=== PATIENT | female | born 1990 | race Caucasian/White ===

== ENCOUNTER 2017-07-25 19:14 | Inpatient (IN) | payer OTHER ==
[~2017-07-25] VITALS: Ht 170.2 cm; Wt 104.3 kg
[~2017-07-25 19:14] MED LIST: BACTRIM DS TAB1 EAC1 PO; BACTRIM DS TAB1 EACH PO; CIPRO250 MG PO; DEPO-PROVE150 MG/11 IM; DEPO-PROVER400 MG/ML IM; DILAUDID 2 MG TA2 MG PO; ERYTHROMYCIN250 MG PO; HUMALOG100 UNIT/2 SUBQ; IRON325 PO; LANTUS100 UNIT/M SUBQ; LEVAQUIN 250 M250 MG PO; MORPHINE SULFAT15 M3 PO; NEURONTIN600 MG PO; ONDANSETRON HCL4 M2 PO; PERCOCET PO; PHENAZOPYRIDIN200 M2 PO; PHENERGAN 25 MG25 M1 PO; REGLAN 10 MG TA10 MG PO; TRAMADOL 50 MG50 MG PO; TRAZODONE 150150 M1 PO; ULTRAM 50MG TAB50 MG PO; VALIUM5 MG PO; VANCOMYCIN1 GM/250 M IV; XANAX 0.5 MG0.5 MG PO; ZOFRAN ODT4 MG DISSOLVE; ZOFRAN ODT4 MG PO; ZOFRAN4 MG PO; [UNRECOGNIZED DRUG - SUPPLY] MC
[2017-07-25 19:19] VITALS: BP 159/89
[2017-07-25 20:33] LABS: ABSOLUTE EOSINOPHILS 0.1 thou/uL (0.0-0.7); ABSOLUTE LYMPHOCYTES 2.1 thou/uL (0.8-5.3); ABSOLUTE MONOCYTES 0.4 thou/uL (0.0-1.2); ABSOLUTE NEUTROPHILS 3.8 thou/uL (1.6-8.1); BASOPHILS 0.4 %; EOSINOPHILS 1.9 %; HEMATOCRIT 35.3 % (37.0-47.0); HEMOGLOBIN 10.8 gm/dL (12.0-15.0); LYMPHOCYTES 32.9 %; MCH 23.3 pg (26.0-34.0); MCHC 30.7 g/dL (28.0-37.0); MCV 76.1 fL (80.0-100.0); MONOCYTES 5.8 %; MPV 8.1 fl. (7.2-11.1); NUCLEATED RBCS 0 /100WBC; PLATELET COUNT* 202 thou/uL (150-400); RBC 4.64 mil/uL (4.20-5.00); RDW-CV 17.9 % (10.5-14.5); WBC 6.4 thou/uL (4.0-11.0)
[2017-07-25 20:44] LABS: CALCIUM 8.3 mg/dL (8.5-10.1); CREATININE 0.9 mg/dL (0.6-1.3)
[2017-07-25 20:45] LABS: ALBUMIN 3.5 g/dL (3.4-5.0); TOTAL BILIRUBIN 0.2 mg/dL (<0.1-1.0); TOTAL PROTEIN 7.4 g/dL (6.4-8.2)
[2017-07-25 22:25] VITALS: BP 131/80
[2017-07-25 22:45] VITALS: BP 118/81
[2017-07-25 22:56] LABS: URINE BILIRUBIN NEGATIVE (Negative); URINE BLOOD TRACE (Negative); URINE CLARITY CLEAR; URINE COLOR STRAW; URINE GLUCOSE-RANDOM 3+ (Negative); URINE KETONES NEGATIVE (Negative); URINE LEUKOCYTES-REFLEX NEGATIVE (Negative); URINE NITRITE-REFLEX NEGATIVE (Negative); URINE PROTEIN NEGATIVE (Negative); URINE SPECIFIC GRAVITY <= 1.005 (1.005-1.030); URINE UROBILINOGEN 0.2 E.U./dl (0.2-1.0)
[2017-07-25 23:07] LABS: AMP/METHAMP Negative (Negative); BARBITURATES Negative (Negative); BENZODIAZEPINES Negative (Negative); COCAINE Negative (Negative); METHADONE Negative (Negative); OPIATES Negative (Negative); PCP Negative (Negative); THC Negative (Negative)
[2017-07-26] VITALS (8 sets, daily range): BP systolic 118–147; BP diastolic 71–93
--- NOTE | 2017-07-26 00:45 | NUR ---
PT ADMITTED TO ICU BED 5 AT 2240, AMBULATED FROM CART TO BED INDEPENDENTLY WITH STEADY GAIT. SEE ADMISSION ASSESSMENT. VSS, SINUS TACHYCARDIA ON MONITOR. IVF AND INSULIN GTT INFUSING PER PROTOCOL. PT REFUSED SCD'S, PT EDUCATED ON RATIONALE BUT DECLINED SCD'S. CELLULITIS TO RIGHT 5TH FINGER OF HAND/WRIST AREA, ERRYTHEMA NOTED TO EXTEND UP FOREARM. PHOTO TAKEN AND PLACED IN PTS CHART. PAIN AND NAUSEA TREATED WITH PRN MEDS ORDERED. UP TO BSC WITH STAND-BY ASSIST ONLY. CALL LIGHT WITHIN REACH.
[2017-07-26 03:22] LABS: HEMATOCRIT 33.7 % (37.0-47.0); HEMOGLOBIN 11.1 gm/dL (12.0-15.0); MCH 24.4 pg (26.0-34.0); MPV 7.9 fl. (7.2-11.1); RBC 4.56 mil/uL (4.20-5.00); RDW-CV 17.6 % (10.5-14.5); WBC 7.7 thou/uL (4.0-11.0)
[2017-07-26 03:51] LABS: ALBUMIN 3.6 g/dL (3.4-5.0); CALCIUM 8.3 mg/dL (8.5-10.1); CREATININE 0.6 mg/dL (0.6-1.3); POTASSIUM 3.2 mmol/L (3.5-5.1); TOTAL BILIRUBIN 0.1 mg/dL (<0.1-1.0); TOTAL PROTEIN 7.4 g/dL (6.4-8.2)
--- NOTE | 2017-07-26 08:30 | NUR ---
INSULIN GTT TURNED OFF. MORNING DOSE OF INSULIN GIVEN,PT ENCOURAGED TO EAT BREAKFAST
--- NOTE | 2017-07-26 14:36 | NUR ---
SPOKE WITH PT. SHE AND HER FIANCE MANUEL ARE CURRENTLY LIVING WITH MANUEL'S SISTER. SHE SAID SHE HAD MEDICAID BUT 'I GUESS I DIDN'T GET SOMETHING IN THE MAIL THAT I NEEDED AND NOW IT HAS LAPSED.' PT HAS REAPPLIED FOR MEDICAID BUT IT IS NOT CURRENT. PT SAID SHE GOES TO [facility] FOR HER PCP, THEY HELP HER WITH HER MEDICATIONS WHEN SHE NEEDS IT ALSO. PT TRANSFERRING OUT OF ICU TODAY. DISCUSSED ROLE OF CASE MGT, WILL CONTINUE TO FOLLOW.
--- NOTE | 2017-07-26 14:55 | NUR ---
PT UP TO ROOM 233 VIA WC. PT ORIENTED TO ROOM,CALL LIGHT WITHIN REACH. DENIES NEEDS AT THIS TIME
--- NOTE | 2017-07-26 17:36 | NUR ---
PT UP TO FLOOR THIS EVENING. PT UP IN ROOM WITH STEADY GAIT. BG STABLE OFF INSULIN GTT. PT CALLS FOR PAIN MEDS FREQUENTLY, PAIN UNCONTROLLED WITH PO AND IV MEDS. PT TOLERATING PO WELL.
--- NOTE | 2017-07-27 04:29 | NUR ---
ASSUMED CARE OF PT AT 1900. PT IS ALERT AND ORIENTED. VSS. PT IS UP AD DARREL. PT REPORTS ONGOING PAIN IN HER RIGHT HAND. PT IS IN SINUS RYTHM ON THE TELEMETRY. PT IS RESTING COMFORTABLY IN BED. RESPIRATIONS ARE EVEN AND NONLABORED. WILL CONTINUE TO MONITOR PT.
[2017-07-27 06:36] LABS: HEMATOCRIT 30.8 % (37.0-47.0); HEMOGLOBIN 9.8 gm/dL (12.0-15.0); MCH 23.9 pg (26.0-34.0); MCHC 31.9 g/dL (28.0-37.0); MCV 74.8 fL (80.0-100.0); RBC 4.11 mil/uL (4.20-5.00); RDW-CV 17.9 % (10.5-14.5); WBC 6.7 thou/uL (4.0-11.0)
[2017-07-27 06:57] LABS: CALCIUM 8.2 mg/dL (8.5-10.1); CREATININE 0.7 mg/dL (0.6-1.3); MAGNESIUM 1.4 mg/dL (1.8-2.4); POTASSIUM 4.4 mmol/L (3.5-5.1)
[2017-07-27 08:30] VITALS: BP 107/70
--- NOTE | 2017-07-27 10:41 | NUR ---
ASSUMED CARES OF PT AT 0700. PT IN BED , BED IN LOW AND LOCKED POSITION. MONITOR FOR FALL RISKS. PT UP AT DARREL/STEADY GAIT. CALL BUTTON AND PERSONAL ITEMS IN PT REACH. PT A&O X4, SIGNIFICANT OTHER BEDSIDE. HR TACHY AT MORNING ROUNDS / 107/110/98. BP WNL, AFEBRILE, PT REPORT PAIN IN RIGHT AND LEFT THUMB, 8/10, TRAMADOL AND IVP MORPHINE ORDERED PRN Q4 HR. LCTAB, ABD SOFT, NON TENDER TO PALPATION. HOURLY ROUNDS AND ACCU CHECKS CONTINUE. RIGHT PORTACATH IV RECEIVING NS 80 ML/HR, IV ABT TOLERATED/NO AVR. FULL CODE. PERRLA. PT TALKATIVE, COOPERATIVE, OCCASIONAL ANXIOUS. NAUSEA REPORT, PHENERGAN EFFECTIVE IVP. HX OF MRSA. CARB CONTROL DIET. PT ACCU CHECK ACHS, SCHEDULED LISPRO, SS LISPRO AND DETEMIR BID SCHEDULED. PT PROGRESSING TOWARDS GOAL. REPORT TO MED SURG FOR TRANSFER. WILL CONTINUE TO MONITOR PT PROGRESS AND STATUS.
--- NOTE | 2017-07-27 13:20 | NUR ---
PT TRANSFERED TO AT 1305. ALL PERSONAL BELONGINGS PACKED AT TAKEN. INSULIN AND IV ABT TAKEN TO NURSE.
--- NOTE | 2017-07-27 18:18 | NUR ---
PATIENT TX FROM NARDA, REPORT FROM DARIELA. PATIENT ARRIVED ON UNIT AT 1310. PATIENT A&OX4, ROOM AIR, PORTICATH RIGHT CHEST FLUIDS INFUSSING. UP AD DARREL, STEADY GAIT. RIGHT THUMB AND FOREARM, REDNESS NOTED, WITH MINIMAL SWELLING AND WARMTH. C/O PAIN TO RIGHT THUMB/FOREARM PARTIAL TO MINIMAL RELIEF WITH MEDICATION. NO OTHER CONCERNS AT THIS TIME. APPROPRIATE AND COOPORATIVE WITH CARE.
[2017-07-27 23:31] VITALS: BP 112/64
--- NOTE | 2017-07-28 05:31 | NUR ---
PATIENT SLEPT OFF AND ON THROUGHOUT SHIFT. IV FLUIDS CONTINUE TO INFUSE AT 80 ML/HR. PATIENT CONTINUES TO ASK FOR PAIN MEDS EVERY THREE TO FOUR HOURS. PATIENT HAS BEEN VERY NAUSEATED THIS SHIFT AND HAS VOMITED A FEW TIMES. PHENERGRAN WAS GIVEN EVERY THREE TO FOUR HOURS. WILL CONTINUE TO MONITOR.
[2017-07-28 07:55] VITALS: BP 109/73
--- NOTE | 2017-07-28 09:23 | CON ---
[address] [address] CONSULTATION Name: TUAN VILLARREAL Room: [address] IN M.R.#: [id number] Admission: 07/25/17 Attend Phys: Cheri Manning Discharge: Date of : 86 Report #: [id number] THIS REPORT FOR: //name// CC: ANDRES physician/PCP Dominic Flores DATE OF SERVICE: 07/27/2017 ATTENDING PHYSICIAN: Jerry Carr M.D. REASON FOR EVALUATION: Infection involving the right fifth metacarpophalangeal site, the patient with diabetes. HISTORY OF PRESENT ILLNESS: Chart reviewed, the patient examined. This is a 26-year-old with diabetes mellitus type 1, who had previous partial amputation of the left thumb, developed an inflammatory lesion overlying the fifth metacarpophalangeal joint. She was out of town and underwent I and D in an urgent care facility. She is unaware if they cultured it. She was started on combination therapy with trimethoprim/sulfamethoxazole as well as ciprofloxacin. At the conclusion of the 7 and 5-day courses she said that it was not significantly improved, had increasing inflammation, pain associated with it. She denies systemic illness; however, on presentation was found to have markedly elevated blood sugars with a somewhat wide anion gap. She was empirically started on vancomycin as well as ceftriaxone. Imaging did not show evidence of any bony involvement at this point, strictly limited to soft tissue. ALLERGIES: PENICILLINS, CODEINE, HYDROCODONE, DOXYCYCLINE, FENTANYL. CURRENT MEDICATIONS: Include insulin, ceftriaxone, ferrous sulfate, vancomycin, p.r.n. analgesics and antiemetics. 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 SOCIAL HISTORY: Nonsmoker, no ethanol. FAMILY HISTORY: Noncontributory. REVIEW OF SYSTEMS: As above. Denies any significant pulmonary or gastrointestinal related complaints. PHYSICAL EXAMINATION: GENERAL: She is alert. She appears to be fairly well nourished. She is in [id number] distress secondary to her hand. [place] [address] CONSULTATION Name: TUAN VILLARREAL Room: [address]#: [id number] Admission: 07/25/17 Attend Phys: Cheri Manning Discharge: Date of : 86 Report #: [id number] well. VITAL SIGNS: Temperature 98.8, pulse 110, respirations 20, blood pressure is 107/70. SKIN: Warm. HEENT: Unremarkable. NECK: Supple. LUNGS: Clear to auscultation. HEART: Regular, tachycardic. I do not appreciate any murmur. ABDOMEN: Soft, nontender, nondistended. EXTREMITIES: No cyanosis. Overlying the right fifth MCP dorsal aspect has a moderate degree of inflammation, appears to be a little bit of an eschar where they I and D's it. There is no fluctuance. It is somewhat tender and extends on the dorsum of the hand proximally. GENITOURINARY: Deferred. RECTAL: Deferred. LABORATORY DATA: Blood cultures sterile thus far. Lactic acid is 1.1. CBC initially 6.4, H and H 10.8 and 35.3, platelets of 202. Electrolytes: Sodium 131 on admission, potassium 4.0, chloride 96, bicarbonate is 21, anion gap of 14, BUN and creatinine 9 and 0.9, glucose of 625. LFTs unremarkable with the exception of elevated alkaline phosphatase of 204, albumin 3.5, total protein 7.4. Estimated GFR of 75. Plain film of the hand, no acute osseous abnormality. MRI same site shows soft tissue inflammation extending to the dorsal and lateral soft tissue of the hand, area of the fifth metacarpophalangeal joint, associated tenosynovitis. No bony changes. CRP of 10.7. Sed rate of 21. ASSESSMENT AND PLAN: Sepsis infection involving the right hand fifth metacarpophalangeal site. We will continue empiric combination parenteral antibiotic therapy at this point. 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 We will monitor expectantly. I do not think at this point there is anything to drain. If not resolved, may need intervention. Again, blood sugar control, try to optimize her nutritional status. <ELECTRONICALLY SIGNED> By: Camron Ac MD 07/28/17 0923 1114 [id number] Ac MD /nt
--- NOTE | 2017-07-28 16:22 | NUR ---
PATIENT A&OX4, ROOM AIR, RIGHT CHEST PORTICATH, SALINE LOCK. UP AD DARREL, STEADY GIAT. C/O PAIN IN RIGHT HAND. SWELLING DECREASED FROM YESTERDAY, REDNESS NOTED. PATIENT REPORTS SMALL AMOUNT OF FLUID DRAINED. NURSING OBSERVED NO DRAINAGE AT THIS TIME. NO OTHER CONCERNS AT THIS TIME. APPROPRIATE AND COOPORATIVE WITH CARE.
[2017-07-28 16:44] VITALS: BP 96/71
[2017-07-28 17:28] VITALS: BP 114/71
[2017-07-29 00:08] VITALS: BP 101/62
[2017-07-29 03:47] LABS: HEMATOCRIT 30.8 % (37.0-47.0); HEMOGLOBIN 9.8 gm/dL (12.0-15.0); MCH 23.8 pg (26.0-34.0); MCHC 31.7 g/dL (28.0-37.0); MCV 74.8 fL (80.0-100.0); MPV 8.1 fl. (7.2-11.1); RBC 4.12 mil/uL (4.20-5.00)
[2017-07-29 04:12] LABS: CALCIUM 8.4 mg/dL (8.5-10.1); CREATININE 0.6 mg/dL (0.6-1.3); MAGNESIUM 1.6 mg/dL (1.8-2.4); POTASSIUM 4.1 mmol/L (3.5-5.1)
--- NOTE | 2017-07-29 06:17 | NUR ---
PATIENT SLEPT PART OF THE NIGHT. IV VANC WAS GIVEN IS ORDERED. PATIENT WAS GIVEN PAIN AND NAUSEA MEDS ABOUT EVERY THREE TO FOUR HOURS WITH SOME RELIEF. WILL CONTINUE TO MONITOR.
[2017-07-29 08:05] VITALS: BP 100/70
[2017-07-29 16:00] VITALS: BP 110/62
--- NOTE | 2017-07-29 19:21 | NUR ---
PATIENT HAS BEEN A/O X 4 THIS SHIFT. MEDICATED FOR PAIN TO RIGHT HAND WITH PARTIAL RELIEF WITH ORAL AND IV PAIN MEDS. PATIENT MEDICATED FOR NAUSEA WITH PHENERGAN WITH RELIEF. RIGHT CHEST PORT A CATH FLUSHES WELL AND HAS BRISK BLOOD RETURN. IV ANTIBIOTICS INFUSING ORDERED. PATIENT UP AD DARREL IN ROOM. TOLERATING DIET, BLOOD SUGARS MONITORED AND INSULIN GIVEN ORDERED. PATIENT'S RIGHT HAND LESS SWOLLEN, HAS HAD ELEVATED ON PILLOWS. REMAINS IN CONTACT ISOLATION FOR MRSA HX. HOURLY ROUNDING COMPLETED. CALL LIGHT WITHIN REACH. WILL CONTINUE WITH PLAN OF CARE.
[2017-07-30 01:00] VITALS: BP 132/92
--- NOTE | 2017-07-30 05:50 | NUR ---
PT HAS BEEN AWAKE MOST OF THE NIGHT, TAKING SHORT NAPS AFTER IV PAIN AND NAUSEA MEDS GIVEN. CONSISTENTLY RATES FINGER PAIN 6-/. RCHEST PAC SL, VANC GIVEN ORDERED, AM LABS DRAWN. TRAMADOL GIVEN PRN PER REQUEST FOR FINGER PAIN WELL. S/O SLEEPING AT BEDSIDE OVERNIGHT. UP INDEP TO BR TO VOID. NO EMESIS THIS SHIFT. HS ACCUCHECK 165, LEVEMEIR INSULIN GIVEN WITH SNACK. REMAINS ON CONTACT ISOLATION FOR HX MRSA. ABLE TO USE CALL LITE AND MAKE NEEDS KNOWN.
[2017-07-30 08:50] VITALS: BP 107/86
--- NOTE | 2017-07-30 12:38 | NUR ---
CONTINUE TO FOLLOW, DISCUSSED WITH YANCY FLORES AND BROOKLYNN. ANTIBX NEEDS AT DC NOT KNOWN YET, PER DR FLORES, WILL REASSSESS TOMORROW. PT IS UNINSURED AND WILL NOT BE ABLE TO SET UP IV ANTIBX FOR HOME. WILL FOLLOW
[2017-07-30 16:00] VITALS: BP 136/89
--- NOTE | 2017-07-30 18:19 | NUR ---
PATIENT HAS BEEN A/O X 4 THIS SHIFT. PATIENT MEDICATED FOR RIGHT HAND PAIN WITH ORAL PAIN MEDS AND IV PAIN MEDS WITH PARTIAL RELIEF. GIVEN IV PHENERGAN FOR NAUSEA MEDS. RIGHT PORT A CATH PATENT, IV ANTIBIOTICS INFUSED ORDERED. PATIENT TO BE NPO AFTER MIDNIGHT FOR I&D OF RIGHT HAND ON SATURDAY. RIGHT HAND HAS BEEN ELEVATED ON PILLOWS. SIGNIFICANT OTHER AT BEDSIDE. HOURLY ROUNDING COMPLETED. CALL LIGHT WITHIN REACH. WILL CONTINUE WITH PLAN OF CARE.
--- NOTE | 2017-07-30 19:52 | NUR ---
UNABLE TO ASPIRATE BLOOD FROM PORT A CATH. CATHFLO INSTILLED TO RIGHT PORT A CATH. NIGHT NURSE INFORMED OF THE ABOVE.
[2017-07-30 20:00] VITALS: BP 125/76; BP 141/89
--- NOTE | 2017-07-30 23:00 | NUR ---
ASSUMED CARE OF PT FROM REGAN MORALES. PT DENIES NEEDS AT PRESENT, ASKING WHEN NEXT PAIN MED CAN BE GIVEN. VANC INFUSING PER PUMP R PAC. CALL LITE IN EASY REACH. S/O AT BEDSIDE. PT AWARE OF NPO AFTER MIDNIGHT FOR I&D FINGER TOMORROW. REMAINS ON CONTACT ISOLATION FOR HX MRSA.
[2017-07-31 02:33] VITALS: BP 125/76
--- NOTE | 2017-07-31 06:57 | NUR ---
PT AWAKE MUCH OF THE NIGHT, REQUESTING IV AND PO PAIN AND NAUSEA MED AVAILABLE FOR CO CELLULITIS FINGER. NPO SINCE MIDNIGHT FOR I&D TODAY. S/O AT BEDSIDE. MAG REPLACED IV, 1.7 THIS MORNING- IV MAG INFUSING PER PUMP AT THIS TIME. R CHEST PAC. ABLE TO USE CALL LITE AND MAKE NEEDS KNOWN. REMAINS ON CONTACT ISOLATION FOR HX MRSA.
[2017-07-31 09:00] VITALS: BP 102/60
[2017-07-31 11:25] VITALS: BP 125/85
[2017-07-31 14:10] VITALS: BP 118/67
[2017-07-31 14:55] VITALS: BP 137/83
--- NOTE | 2017-07-31 16:27 | NUR ---
PATIENT HAD AN I/D OF RIGHT PINKY FINGER THIS AFTERNOON. RIGHT HAND WRAPPED, WARM TO TOUCH AND GOOD CAP REFILL, PATIENT ABLE TO WIGGLE FINGERS. RIGHT ARM ELEVATED. SCHED VANCOMYCIN INFUSED ORDERED. RIGHT PAC FLUSHING WITH GOOD BLOOD RETURN NOTED. [address] AFTER SURGERY. PRN OXY IR AND MORPHINE/PHENERGAN GIVEN Q4 HOURS WHEN REQUESTED.
--- NOTE | 2017-07-31 16:58 | CON ---
[address] [address] CONSULTATION Name: TUAN VILLARREAL Room: [address] IN ..#: [id number] Admission: 07/25/17 Attend Phys: Cheri Manning Discharge: Date of : 86 Report #: [id number] THIS REPORT FOR: //name// CC: ANDRES physician/PCP Dominic Flores DICTATED BY: Erickson Briggs REASON FOR CONSULTATION: Right hand cellulitis and soft tissue swelling. HISTORY OF PRESENT ILLNESS: The patient is a 26-year-old female with a history of multiple MRSA infections in the past in multiple body parts. She has also had previous osteomyelitis of her left thumb and had a surgery for this. The right hand started swelling about a month ago and was apparently drained by the Emergency Department at one time. She continued to have pain and swelling in this area and was eventually admitted to the hospital. She was previously on oral antibiotics and has been on IV antibiotics since her admission. She notes occasional chills, but denies any other recent illnesses. She is a type 1 diabetic. PAST MEDICAL HISTORY: MRSA, abdominal pain, type 1 diabetes, previous diabetic ketoacidosis, previous UTIs. PAST SURGICAL HISTORY: Appendectomy, oophorectomy, previous , cholecystectomy, umbilical hernia repair, multiple I and D's for MRSA abscesses. SOCIAL HISTORY: The patient denies any tobacco abuse or alcohol abuse or illicit drug use. ALLERGIES: CODEINE, DOXYCYCLINE, FENTANYL, PENICILLINS, AND HYDROCODONE. REPORTED MEDICATIONS: Insulin, promethazine, tramadol, insulin glargine, diazepam, and iron. Currently, tolerating morphine. REVIEW OF SYSTEMS: Ten-point review of systems was negative with the exception of HPI. LABORATORY DATA: Labs from 07/29/2017, white count 6.0, hemoglobin 9.8, platelets 233. ESR from 07/25/2017 is 21. IMAGING: X-ray of the right hand from 07/25/2017, demonstrates no acute osseous abnormality. There is mild evidence of soft tissue swelling. MRI with and without contrast of the right hand demonstrates soft tissue swelling with evidence of tenosynovitis and there is no clear fluid collection per report; however, there is extensive fluid signal in [place] [address] CONSULTATION Name: TUAN VILLARREAL Room: [address]#: [id number] Admission: 07/25/17 Attend Phys: Cheri Manning Discharge: Date of : 86 Report #: [id number] PHYSICAL EXAMINATION: VITAL SIGNS: Temperature 36.8, pulse 102, respirations 16, blood pressure 107/36. HEAD: Normocephalic, atraumatic. EYES: Pupils are equal and reactive to light. ENT: Mucous membranes moist. NECK: Supple, full range of motion. CHEST: Equal chest rise bilaterally. LUNGS: No respiratory distress. HEART: Good peripheral perfusion. ABDOMEN: Soft. SKIN: Warm and dry. NEUROLOGIC: Cranial nerves 2-12 grossly intact. No focal deficits. MUSCULOSKELETAL: Right hand shows the dorsum of the fifth metacarpophalangeal joint with a raised area here. This measures approximately 1 x 1 cm. There is previous incision that is healing well. This raised area is erythematous and extremely tender to palpation. No expressible fluid. This is indurated as well. Passive range of motion of the finger is tolerated, but there is some pain with this. She has brisk capillary refill. Sensation intact to light touch distally. No streaking erythema proximally. She does have some mild tenderness over the wrist, but no erythema here and she has full range of motion of the wrist. IMPRESSION: Right hand cellulitis and soft tissue swelling consistent with abscess and history of methicillin-resistant Staphylococcus aureus, refractory to antibiotic treatment. TREATMENT PLAN: At this time, I had thorough discussion with the patient regarding treatment options. She is clearly tried just about everything she can with regard to IV antibiotics for this. Although the MRI states that there is no definite fluid collection, I would argue that this area shows quite a bit of signal with post contrast administration that may benefit from irrigation and debridement. We discussed the risks, benefits, complications, alternatives and indications to doing this and she is willing to proceed. She will be n.p.o. after midnight for evaluation in the morning and surgical irrigation and debridement tomorrow. The patient is agreeable to this. <ELECTRONICALLY SIGNED> By: Alexey Garcia DO 07/31/17 1658 1618 [id number] Garcia DO /nt
--- NOTE | 2017-07-31 16:58 | OP ---
[address] [address] OPERATIVE REPORT Name: TUAN VILLARREAL Room: [address] IN M.R.#: [id number] Admission: 07/25/17 Attend Phys: Cheri Manning Discharge: Date of : 86 Report #: [id number] THIS REPORT FOR: //name// CC: ANDRES physician/PCP Dominic Flores DATE OF SERVICE: 07/31/2017 PREOPERATIVE DIAGNOSIS: Cellulitis of the right hand, especially over the fifth finger and the metacarpophalangeal joint. POSTOPERATIVE DIAGNOSIS: Cellulitis of the right hand especially over the fifth finger and the metacarpophalangeal joint plus remote possibility of septic arthritis metacarpophalangeal joint, fifth finger, right hand. SURGERY PERFORMED: Incision and debridement of the right hand fifth finger area with arthrotomy and lavage of the MP joint. Tissue cultures were taken subcutaneous distally and cultures of the MP joint. SURGEON: Alexey Garcia DO OPTOMETRIST/PRACTICE OWNER: Dr. Geremias DO ANESTHESIA: General anesthetic. The patient has been on scheduled vancomycin antibiotic. She has no drains, no complications. SPECIMENS: Tissue cultures. GROSS FINDINGS: Prior to surgery, the patient demonstrated a small cut over the fifth metacarpal MP joint of the right hand near that fifth finger, had painful range of motion, initially had erythema up the arm, has been on antibiotics for 5 days. Continues to have pain, especially with extension. The patient did not show any palpable pain over the extensor tendons, but she pointed to that area that was also painful. We find no tenosynovitis in surgery. Overall, the MRI was really not that remarkable on the examination. The patient again had no gross findings of any gross infection in this joint area or the surrounding area except for thickened tissue over the prior injury site. SURGERY IN DETAIL: She was taken to the operating room and placed on table, given the benefit of general anesthetic. She had failed all other conservative care and measures. Timeout was called and verified for the right hand surgery. She did undergo a chlorhexidine prep and sterile draping. Then, a timeout was called and verified. Surgery began under loupe magnification with inflation of the tourniquet to 250 mmHg. Longitudinal incision was [place] [address] OPERATIVE REPORT Name: TUAN VILLARREAL Room: [address]#: [id number] Admission: 07/25/17 Attend Phys: Cheri Manning Discharge: Date of : 86 Report #: [id number] aspect of the right hand down to the extensor tendon complex, which was explored and intact with no gross findings of infection. The patient then had an arthrotomy made to the MP joint on the most lateral side. The joint was opened up. No purulence, but cultures were taken there. We excised out that thickened tissue in the subcutaneous plane and deep tissue cultures of that area. We then copiously irrigated all this area with normal saline. The skin was closed with 3-0 nylon in simple fashion. Xeroform, 4 x 4s, Kerlix, Nolberto wrap dressing was applied; transferred off table; taken to recovery in stable condition. I attest I was present for all critical aspects of surgery. Needle, instrument, sponge counts correct. <ELECTRONICALLY SIGNED> By: Alexey Garcia DO 07/31/17 1658 1310 [id number] Garcia DO /nt
[2017-08-01] VITALS: BP 182/91
--- NOTE | 2017-08-01 06:35 | NUR ---
PATIENT SLEPT PART OF THE NIGHT. PATIENT WAS GIVEN PAIN MEDS ABOUT EVERY TWO HOURS ALTERNATING WITH IV AND PO MEDS. IV VANC WAS GIVEN ORDERED. DRESSING WAS LOOSENED TO RIGHT HAND BUT REMAINS IN PLACE. WILL CONTINUE TO MONITOR.
[2017-08-01 09:00] VITALS: BP 106/78
--- NOTE | 2017-08-01 12:42 | EKG ---
[place] [address] ELECTROCARDIOGRAM REPORT Name: PHILTUAN Lukasz Room: [address] ADM IN M.R.#: [id number] Admission: 07/25/17 Attend Phys: Cheri Manning Discharge: Date of : 86 Report #: [id number] THIS REPORT FOR: //name// [facility] Test Date: 2017-07-31 Test Time: 10:29:57 Pat Name: TUAN VILLARREAL Department: Room: [address] Gender: F [employer] Le[employer] Consultant: : 1990 Requested By: Alexey Garcia Order Number: [id number] Sae MD: Chris Sheriff Measurements Intervals [place] Rate: 88 P: 45 SC: 147 QRS: -5 QRSD: 86 T: 44 QT: 407 QTc: 493 Interpretive Statements Sinus rhythm RSR' in V1 or V2, right VCD or RVH Borderline prolonged QT interval No previous ECG available for comparison Electronically Signed On 08-01-2017 12:42:39 ANNEALING TORCH OPERATOR by Chris Sheriff [email or web address] <ELECTRONICALLY SIGNED> By: Chris Sheriff MD, [facility] 08/01/17 1242 1029 1029 Chris Sheriff MD, FACC /EPI
--- NOTE | 2017-08-01 15:04 | NUR ---
CONTINUE TO FOLLOW, MET WITH PT TO DISCUSS [employer] SCRIPT. SHE STILL THINKS THAT SHE MAY BE ELIGIBLE FOR MEDICAID AND WANTS TO CONTACT THEM. GAVE HER NUMBER TO CALL. DID HAVE PRECERT CHECK AND MEDICAID IS NOT ACTIVE. OFFERED [employer] AND SHE DECLINED, DOESN'T WANT TO WORK WITH THEM. DISCUSSED WITH DR FLORES AND BROOKLYNN. PT DID GIVE PERMISSION TO CHECK [employer] ASSIST. CALLED AND SPOKE WITH [facility], PT HAS HAD ASSIST IN THE PAST IN 2017 AND WILL NEED TO UPDATE AN APPLICATION. THEY ARE FAXING IT. [facility] STATED ONCE COMPLETE, NEEDS FAXED BACK AND WILL TAKE ABOUT AN HOUR TO PROCESS. WILL ASSIST IN GETTING COMPLETED AND FAX WHEN DONE
[2017-08-01 16:07] VITALS: BP 106/69
--- NOTE | 2017-08-01 16:46 | NUR ---
PATIENT REQUESTING OXY IR EVERY 4 HOURS FOR RIGHT HAND PAIN AND MORPHINE/PHENERGAN EVERY 4 HOURS FOR RIGHT HAND PAIN. SCHED IV VANC INFUSED ORDERED OTHERWISE RIGHT PAC SL. PATIENT STARTED ON PO ZYVOX THIS SHIFT PER DR. FLORES FROM ID. RIGHT HAND DRESSING REMAINS D/I. INSULIN GIVEN WITH MEALS ORDERED. POSSIBLE DISCHARGE TOMORROW.
[2017-08-01 23:41] VITALS: BP 121/74
--- NOTE | 2017-08-02 06:13 | NUR ---
PATIENT SLEPT PART OF THE NIGHT. PAIN MEDS WERE GIVEN ABOUT EVERY THREE TO FOUR HOURS. PLAN IS FOR PATIENT IS DISCHARGE HOME TODAY. WILL CONTINUE TO MONITOR.
[2017-08-02 09:00] VITALS: BP 120/68
--- NOTE | 2017-08-02 11:32 | NUR ---
COLE provided pt the approval letter and explained to pt to take the letter to her pharmacy to receive the Zyvox. Pt said okay and agreed that she expected to be able to dc today. No other needs expressed.
--- NOTE | 2017-08-02 11:32 | NUR ---
SPOKE WITH GABRIELE AT [email or web address] [facility], FAXED IN ADD'L REQUESTED INFO AND RECEIVED APPROVAL FOR [email or web address] [facility] FOR PT-WILL RECEIVE AT NO COST. FORM FAXED TO [employer] TO GIVE TO PT TO TAKE TO HER PHARMACY TO OBTAIN SCRIPT. CALL TO LISTED PHARMACY/[facility] @/[facility] AND THEY DO HAVE MED IN STOCK ZYVOX ASSIST: ID [id number] BIN [id number] [facility] [id number]
[2017-08-02] MEDS ORDERED: OXYCODONE HCL15 MG PO (15:48)
[2017-08-02] MEDS ORDERED: OXYCODONE HCL 55 MG PO (15:50)
[2017-08-02] MEDS ORDERED: APAP650 PO (15:52)
[2017-08-02] MEDS ORDERED: ZYVOX600 MG PO (16:00)
[2017-08-02 16:06] VITALS: BP 120/68
[2017-08-02 16:21] VITALS: BP 120/84
[2017-08-02 16:35] VITALS: BP 120/68
[2017-08-02 16:39] VITALS: BP 120/68
--- NOTE | 2017-08-02 17:06 | NUR ---
ASSUMED CARES OF PT AT 0700. PT IN BED ASLEEP, BED IN LOW AND LOCKED POSITION. CALL BUTTON AND PERSONAL ITEMS IN PT REACH. PT A&O X4, HRRR PER AUSCULTATION, LCTAB, VSS ON RA. RIGHT CHEST PORTOCATH PATENT TO FLUSH BUT NO BLOOD DRAW. HOURLY ROUNDING AND ACCU CHECKS CONTINUE. AFEBRILE, PERRLA, DRESSING ON RIGHT HAND C/D/I. PT REFUSED BATH TODAY, PT STATED SHE WILL CLEAN HERSELF WHEN SHE WANTS. PT UP INDEPENDENT TO BATHROOM. ABD SOFT, NON TENDER TO PALPATION. ASSESSMENTS COMPLETED. PT PROGRESSING TOWARDS GOAL. WILL CONTINUE TO MONITOR PT STATUS AND PROGRESS.
--- NOTE | 2017-08-02 18:53 | NUR ---
PT CLEARED FOR DISCHARGE. PT PERSONAL BELONGINGS PACKED. ROOM CHECKED. DISCHARGE EDUCATION GIVEN. PRESCRIPTIONS GIVEN WITH CARE NOTES. ABT CALLED INTO [facility] ON [address] [place]. WOUND PHOTOS TAKEN. PT REMAINS STABLE. ALL DOCUMENTATION SIGNED. PT ESCORTED VIA WC TO FRONT OF HOSPITAL TO MEET CAB/WITH CAB VOUCHER TO GO TO FAMILY HOME. HOURLY ROUNDS AND ACCU CHECKS COMPLETED. PT DISCHARGE AT 1855.
[2017-08-02 19:01] VITALS: BP 120/68
== END 2017-08-02 18:55 | disposition home or self-care (01) | DRG 854 ==
LOC: M.ERS 19:14 → M.ICU 21:40 → M.TBA-ER 21:40 → M.ICU 22:07 → M.2W 07-26 14:46 → M.3W 07-27 13:01
PROVIDERS: Emergency Medicine; Internal Medicine; ADMIT Internal Medicine
PROC: 0RBU0ZZ Excision of Right Metacarpophalangeal Joint, Open Approach (ICD-10-PCS; principal; 2017-07-31)
DX: A41.9 Sepsis, unspecified organism (principal); L02.511 Cutaneous abscess of right hand; F41.9 Anxiety disorder, unspecified; L03.011 Cellulitis of right finger; E10.65 Type 1 diabetes mellitus with hyperglycemia; M65.841 Other synovitis and tenosynovitis, right hand; E66.9 Obesity, unspecified; E86.9 Volume depletion, unspecified; Z90.721 Acquired absence of ovaries, unilateral; Z90.49 Acquired absence of other specified parts of digestive tract; Z98.891 History of uterine scar from previous surgery; Z86.14 Personal history of Methicillin resistant Staphylococcus aureus infection; Z79.4 Long term (current) use of insulin; Z79.899 Other long term (current) drug therapy; Z68.36 Body mass index [BMI] 36.0-36.9, adult; Z88.0 Allergy status to penicillin; Z88.5 Allergy status to narcotic agent; Z88.8 Allergy status to other drugs, medicaments and biological substances; Z80.8 Family history of malignant neoplasm of other organs or systems

== ENCOUNTER 2017-11-06 19:32 | Emergency (ER) | payer OTHER ==
[~2017-11-06] VITALS: Ht 170.2 cm; Wt 95.3 kg
[~2017-11-06 19:32] MED LIST changes: +APAP650 PO; +OXYCODONE HCL 55 MG PO; +OXYCODONE HCL15 MG PO; +ZYVOX600 MG PO
[2017-11-06 20:10] LABS: ABSOLUTE EOSINOPHILS 0.1 thou/uL (0.0-0.7); ABSOLUTE LYMPHOCYTES 1.7 thou/uL (0.8-5.3); ABSOLUTE MONOCYTES 0.3 thou/uL (0.0-1.2); ABSOLUTE NEUTROPHILS 2.4 thou/uL (1.6-8.1); BASOPHILS 0.5 %; EOSINOPHILS 1.8 %; HEMATOCRIT 34.2 % (37.0-47.0); HEMOGLOBIN 10.8 gm/dL (12.0-15.0); LYMPHOCYTES 38.1 %; MCH 23.2 pg (26.0-34.0); MCHC 31.4 g/dL (28.0-37.0); MCV 73.8 fL (80.0-100.0); MONOCYTES 5.7 %; MPV 8.1 fl. (7.2-11.1); NUCLEATED RBCS 0 /100WBC; PLATELET COUNT* 271 thou/uL (150-400); POLYS 53.9 %; RBC 4.64 mil/uL (4.20-5.00); RDW-CV 16.8 % (10.5-14.5); WBC 4.4 thou/uL (4.0-11.0)
[2017-11-06 20:18] LABS: CALCIUM 8.9 mg/dL (8.5-10.1); CREATININE 0.7 mg/dL (0.6-1.3); POTASSIUM 3.9 mmol/L (3.5-5.1)
[2017-11-06 20:22] LABS: ALBUMIN 3.6 g/dL (3.4-5.0); TOTAL BILIRUBIN 0.4 mg/dL (<0.1-1.0); TOTAL PROTEIN 7.9 g/dL (6.4-8.2)
[2017-11-06 21:57] LABS: URINE BILIRUBIN NEGATIVE (Negative); URINE BLOOD TRACE (Negative); URINE CLARITY CLEAR; URINE COLOR STRAW; URINE GLUCOSE-RANDOM 3+ (Negative); URINE KETONES NEGATIVE (Negative); URINE LEUKOCYTES-REFLEX NEGATIVE (Negative); URINE NITRITE-REFLEX NEGATIVE (Negative); URINE PROTEIN NEGATIVE (Negative); URINE UROBILINOGEN 0.2 E.U./dl (0.2-1.0)
[2017-11-06] MEDS ORDERED: PERCOCET PO (22:31)
[2017-11-06] MEDS ORDERED: BACTRIM DS TAB1 EACH PO (22:31)
[2017-11-06] MEDS ORDERED: PHENERGAN12.5 M2 RECTAL (22:33)
[2017-11-06] MEDS ORDERED: PHENERGAN 25 MG25 M1 PO (22:33)
[2017-11-06 23:01] VITALS: BP 160/100
== END 2017-11-06 23:05 | disposition home or self-care (01) ==
LOC: M.ERS 19:32
PROVIDERS: Physician Assistant
DX: L03.113 Cellulitis of right upper limb (principal); R11.2 Nausea with vomiting, unspecified; E10.65 Type 1 diabetes mellitus with hyperglycemia; F41.9 Anxiety disorder, unspecified; Z86.2 Personal history of diseases of the blood and blood-forming organs and certain disorders involving the immune mechanism; Z90.49 Acquired absence of other specified parts of digestive tract; Z90.721 Acquired absence of ovaries, unilateral; Z98.890 Other specified postprocedural states; Z86.14 Personal history of Methicillin resistant Staphylococcus aureus infection; Z88.5 Allergy status to narcotic agent; Z88.0 Allergy status to penicillin

== ENCOUNTER 2018-02-10 20:46 | Inpatient (IN) | payer OTHER ==
[~2018-02-10] VITALS: Ht 170.2 cm; Wt 106.6 kg
[~2018-02-10 20:46] MED LIST changes: +PHENERGAN12.5 M2 RECTAL
[2018-02-10 20:57] VITALS: BP 131/80
[2018-02-10] MEDS ORDERED: SEROQUEL200 MG PO (21:03)
[2018-02-10 21:35] LABS: ABSOLUTE EOSINOPHILS 0.1 thou/uL (0.0-0.7); ABSOLUTE LYMPHOCYTES 1.3 thou/uL (0.8-5.3); ABSOLUTE MONOCYTES 0.4 thou/uL (0.0-1.2); ABSOLUTE NEUTROPHILS 3.2 thou/uL (1.6-8.1); BASOPHILS 0.3 %; EOSINOPHILS 1.6 %; HEMATOCRIT 35.4 % (37.0-47.0); HEMOGLOBIN 11.4 gm/dL (12.0-15.0); LYMPHOCYTES 26.2 %; MCH 26.4 pg (26.0-34.0); MCHC 32.2 g/dL (28.0-37.0); MCV 82.1 fL (80.0-100.0); MONOCYTES 7.9 %; MPV 7.8 fl. (7.2-11.1); NUCLEATED RBCS 0 /100WBC; PLATELET COUNT* 231 thou/uL (150-400); RBC 4.32 mil/uL (4.20-5.00); RDW-CV 17.7 % (10.5-14.5)
[2018-02-10 21:46] LABS: ANION GAP 13 mmol/L (7-16); BUN 10 mg/dL (7-18); CALCIUM 8.5 mg/dL (8.5-10.1); CHLORIDE 91 mmol/L (98-107); CO2 23 mmol/L (21-32); PROTIME 10.4 Seconds (9.20-11.50); SODIUM 127 mmol/L (136-145)
[2018-02-10 21:54] LABS: ALBUMIN 3.6 g/dL (3.4-5.0); ALKALINE PHOSPHATASE 259 U/L (46-116); LIPASE 138 U/L (73-393); NT-PRO BRAIN NAT PEPTIDE 44 pg/mL (<300); SGOT 22 U/L (15-37); SGPT 37 U/L (30-65); TOTAL BILIRUBIN 0.3 mg/dL (<0.1-1.0); TOTAL PROTEIN 7.7 g/dL (6.4-8.2); TROPONIN-I LEVEL <0.06 ng/mL (<0.06)
[2018-02-10 21:58] LABS: GLUCOSE 678 mg/dL (70-99)
[2018-02-10 23:51] VITALS: BP 122/83
[2018-02-11] VITALS: BP 151/86
[2018-02-11 01:25] LABS: HEMATOCRIT 35.9 % (37.0-47.0); HEMOGLOBIN 11.8 gm/dL (12.0-15.0); MCH 26.4 pg (26.0-34.0); MCHC 32.8 g/dL (28.0-37.0); MCV 80.5 fL (80.0-100.0); MPV 7.7 fl. (7.2-11.1); RBC 4.46 mil/uL (4.20-5.00); RDW-CV 17.7 % (10.5-14.5); WBC 5.4 thou/uL (4.0-11.0)
[2018-02-11 01:34] LABS: ALBUMIN 3.4 g/dL (3.4-5.0); CALCIUM 8.7 mg/dL (8.5-10.1); CREATININE 0.7 mg/dL (0.6-1.3); POTASSIUM 3.6 mmol/L (3.5-5.1); TOTAL BILIRUBIN 0.3 mg/dL (<0.1-1.0); TOTAL PROTEIN 7.7 g/dL (6.4-8.2)
[2018-02-11 04:00] VITALS: BP 143/80
[2018-02-11 08:00] VITALS: BP 139/87
[2018-02-11 12:40] VITALS: BP 126/77
[2018-02-11 16:28] VITALS: BP 136/79
--- NOTE | 2018-02-11 17:07 | EKG ---
[place] [address] ELECTROCARDIOGRAM REPORT Name: TUAN VILLARREAL Room: [address] ADM IN .R.#: [id number] Admission: 02/10/18 Attend Phys: Olivia Mcintyre Discharge: Date of : 86 Report #: [id number] THIS REPORT FOR: //name// [facility] ED Test Date: 2018-02-10 Test Time: 21:21:40 Pat Name: TUAN VILLARREAL Department: Room: [facility] Gender: F Medical Scientific Liaison: JORGE LUIS : 1990 Requested By: Lynn Montanez Order Number: [id number] MD: Dewey Chamberlain Measurements Intervals [place] Rate: 115 P: 48 RI: 161 QRS: 117 QRSD: 90 T: 22 QT: 338 QTc: 468 Interpretive Statements Sinus tachycardia Probable left atrial enlargement nonspecific t wave changes Compared to ECG 07/31/2017 10:29:57 Sinus rhythm no longer present Electronically Signed On 02-11-2018 17:07:14 CDT by Dewey Chamberlain [email or web address] <ELECTRONICALLY SIGNED> By: Dewey Chamberlain MD, [facility] 02/11/18 5857 20 20 Dewey Chamberlain MD, [facility] /EPI
[2018-02-11 20:10] VITALS: BP 148/85
[2018-02-12] VITALS: BP 136/79
[2018-02-12 04:00] VITALS: BP 141/71
[2018-02-12 04:58] LABS: HEMATOCRIT 34.9 % (37.0-47.0); HEMOGLOBIN 11.3 gm/dL (12.0-15.0); MCH 26.3 pg (26.0-34.0); MCHC 32.4 g/dL (28.0-37.0); MCV 81.4 fL (80.0-100.0); MPV 8.1 fl. (7.2-11.1); RBC 4.29 mil/uL (4.20-5.00); RDW-CV 17.9 % (10.5-14.5); WBC 3.6 thou/uL (4.0-11.0)
[2018-02-12 05:55] LABS: ALBUMIN 3.3 g/dL (3.4-5.0); CALCIUM 8.3 mg/dL (8.5-10.1); CREATININE 0.5 mg/dL (0.6-1.3); MAGNESIUM 1.6 mg/dL (1.8-2.4); POTASSIUM 3.9 mmol/L (3.5-5.1); TOTAL BILIRUBIN 0.3 mg/dL (<0.1-1.0)
[2018-02-12 08:50] VITALS: BP 126/80
[2018-02-12 10:11] LABS: URINE BILIRUBIN NEGATIVE (Negative); URINE BLOOD TRACE (Negative); URINE CLARITY CLEAR; URINE COLOR YELLOW; URINE GLUCOSE-RANDOM 3+ (Negative); URINE KETONES NEGATIVE (Negative); URINE LEUKOCYTES-REFLEX NEGATIVE (Negative); URINE NITRITE-REFLEX NEGATIVE (Negative); URINE PROTEIN TRACE (Negative); URINE SPECIFIC GRAVITY 1.015 (1.005-1.030); URINE UROBILINOGEN 0.2 E.U./dl (0.2-1.0)
[2018-02-12 10:21] LABS: AMP/METHAMP Negative (Negative); BARBITURATES Negative (Negative); BENZODIAZEPINES Negative (Negative); COCAINE Negative (Negative); METHADONE Negative (Negative); OPIATES POSITIVE (Negative); PCP Negative (Negative); THC Negative (Negative)
[2018-02-12 12:18] VITALS: BP 140/75
[2018-02-12 20:01] VITALS: BP 150/93
[2018-02-13] VITALS: BP 126/75
[2018-02-13 16:00] VITALS: BP 117/68
[2018-02-14] VITALS: BP 148/99
[2018-02-14 09:00] VITALS: BP 105/80
[2018-02-14 16:00] VITALS: BP 116/70
[2018-02-15 08:07] LABS: HEMATOCRIT 34.2 % (37.0-47.0); HEMOGLOBIN 10.9 gm/dL (12.0-15.0); MCHC 31.7 g/dL (28.0-37.0); MPV 8.9 fl. (7.2-11.1); RBC 4.18 mil/uL (4.20-5.00); RDW-CV 17.6 % (10.5-14.5); WBC 5.8 thou/uL (4.0-11.0)
[2018-02-15 08:35] LABS: ALBUMIN 3.3 g/dL (3.4-5.0); CALCIUM 8.5 mg/dL (8.5-10.1); CREATININE 0.5 mg/dL (0.6-1.3); MAGNESIUM 1.7 mg/dL (1.8-2.4); POTASSIUM 4.3 mmol/L (3.5-5.1); TOTAL BILIRUBIN 0.3 mg/dL (<0.1-1.0); TOTAL PROTEIN 7.1 g/dL (6.4-8.2)
[2018-02-15 09:00] VITALS: BP 108/66
[2018-02-15 16:00] VITALS: BP 111/65
[2018-02-16] VITALS: BP 120/75
[2018-02-16 09:05] VITALS: BP 127/70
[2018-02-16 15:46] VITALS: BP 97/58
[2018-02-16 20:05] VITALS: BP 123/74
--- NOTE | 2018-02-16 23:31 | CON ---
[address] [address] CONSULTATION Name: VENECIA VILLARREAL Room: [address] IN ..#: [id number] Admission: 02/10/18 Attend Phys: Olivia Mcintyre Discharge: Date of : 86 Report #: [id number] THIS REPORT FOR: //name// CC: ANDRES physician/PCP Lauro Chavez DATE OF SERVICE: 02/16/2018 CONSULTATION: Infectious Diseases. HISTORY OF PRESENT ILLNESS: Venecia Villarreal is a 27-year-old white female, admitted to the hospital on 02/11/2018 because of pain and drainage from an umbilical wound. The patient had lipoma about the size of a golf ball, which was causing abdominal pain. This was removed about 2 months ago, she had delayed wound healing. The patient says her diabetes was under good control at the time of surgery. She presents yesterday to [facility] and was found to have a glucose of 678, A1c of 9.5 and MRSA in the wound. The patient has been treated with vancomycin, but it has been difficult to maintain therapeutic vancomycin levels. Her most recent level at trough was 13. Infectious Disease consultation was requested to assist with further evaluation and treatment. PAST MEDICAL HISTORY: Significant for diabetes and anxiety. 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 PAST SURGICAL HISTORY: Includes section, cholecystectomy, appendectomy, ovarian cyst removal. The patient had a ventral hernia repaired with mesh and the recent lipoma removal. ALLERGIES: THE PATIENT NOTES ALLERGIES TO PENICILLIN AND TETRACYCLINE WELL INTOLERANCE TO HYDROCODONE AND FENTANYL. FAMILY HISTORY: Noncontributory. SOCIAL HISTORY: The patient is fianced and lives with her fiance. She does not use tobacco, alcohol or drugs. 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 REVIEW OF SYSTEMS: CONSTITUTIONAL: The patient denies fevers, chills, sweats. She has weakness and malaise. ENT: No headache, sinus congestion, sore throat, trouble swallowing. RESPIRATORY: The patient denies cough, chest pain, shortness of breath. CARDIOVASCULAR: She denies angina, syncope, palpitations. GASTROINTESTINAL: The patient is having anorexia. She denies [place], [place] [address] CONSULTATION Name: VENECIA VILLARREAL Room: [address] IN [facility]#: [id number] Admission: 02/10/18 Attend Phys: Olivia Mcintyre Discharge: Date of : 86 Report #: [id number] when she takes a bite she loses appetite and cannot eat. She has had no emesis. Her bowels are doing well. She complains of periumbilical and epigastric pain, which is requiring parenteral and oral narcotics. This pain has both acute and chronic elements. She says in the past Lidoderm has not been effective for her abdominal pain. She denies any history of diabetic gastroparesis. GENITOURINARY: The patient denies trouble with urination. EXTREMITIES: No pain in the extremities. PHYSICAL EXAMINATION: GENERAL: The patient appears healthy, comfortable, not in any distress. VITAL SIGNS: Normal. The patient is afebrile. Maximum temperature is 99.1, the day of admission. SKIN: Shows multiple tattoos. ABDOMEN: The abdominal wall shows a healing surgical wound just above the umbilicus. There are 2 open areas about 1 x 1 cm with about a 1 cm bridge of epithelium in between. The lower wound has some undermining at 6 o'clock of about 2 mm. I could not pass a Q-tip in any kind of tunnel or tract. The lower wound, however, was somewhat tender when probed. There is tenderness around the wound in the epigastrium, although the skin itself is not red, warm, swollen or indurated. The patient feels there is some warmth on the right side of the epigastrium. EXTREMITIES: Show post-surgical changes and scarring, but otherwise unremarkable. LABORATORY DATA: White count is normal, hemoglobin 10.9. Electrolytes normal, BUN was 6, creatinine 0.5. The glucose was 678 on admission, but responded quickly to insulin and was 115 today. Hemoglobin A1c was 9.5. The alkaline phosphatase has risen to 311. The most recent vancomycin trough was 13 on 1.5 grams q.8 hours. The culture from the wound grew MRSA. Blood cultures x 2 are negative. IMPRESSION: 1. Poorly controlled diabetes. 2. History of methicillin-resistant Staphylococcus aureus and nonhealing surgical wound over abdominal mesh. I would suggest we change from vancomycin to oral Zyvox 600 mg p.o. b.i.d. We will have manager social work initiate a patient assistance application for continued Zyvox after discharge. We will stop the vancomycin. We will need to stop the tramadol as there is a QT prolongation problem when these 2 drugs are used together. The patient says she is not really using tramadol very much. I would like to do a sonogram of the abdominal wall to make sure there is no obvious abscess or inflammatory involvement of the mesh. We can ask the Wound Care nurse to assist with wound management. At this time, I would like to use Silvadene and Puracol to the wound. I am concerned with the poor nutrition and I would recommend a consultation from dietitian and Glucerna supplements until [facility] [address] [place] [address] CONSULTATION Name: VENECIA VILLARREAL Room: [address] IN [facility].#: [id number] Admission: 02/10/18 Attend Phys: Olivia Mcintyre Discharge: Date of : 86 Report #: [id number] the patient is ready to eat. We will need to address the patient's pain as after she is on oral antibiotics this will probably be the main reason for her to continue in the hospital. The wound itself does not look like it should be a particularly painful lesion. I appreciate the opportunity of input in the care of this complex patient. I will be happy to follow her through the weekend until Dr. Ac returns on Saturday. <ELECTRONICALLY SIGNED> By: Robert Callejas MD 02/16/18 2331 [id number] [id number] Callejas MD /lb
[2018-02-17 08:01] VITALS: BP 131/86
[2018-02-17 16:00] VITALS: BP 124/54
[2018-02-17 20:35] VITALS: BP 120/82
[2018-02-18 07:55] VITALS: BP 110/68
[2018-02-18] MEDS ORDERED: SSD25 GM TOP (10:49)
[2018-02-18] MEDS ORDERED: LIDOPATCH1 EACH TOP (10:49)
[2018-02-18] MEDS ORDERED: PERCOCET 10-321 EACH PO (10:49)
[2018-02-18] MEDS ORDERED: TRAMADOL 50 MG50 MG PO (10:49)
[2018-02-18] MEDS ORDERED: ZYVOX600 MG PO (10:49)
[2018-02-18 11:52] VITALS: BP 110/68
== END 2018-02-18 18:12 | disposition home or self-care (01) | DRG 863 ==
LOC: M.ERS 20:46 → M.TBA-ER 22:27 → M.2W 22:27 → M.3W 02-13 09:57
PROVIDERS: Emergency Medicine; Family Medicine; Internal Medicine; ADMIT Internal Medicine
DX: T81.4XXA Infection following a procedure, initial encounter (principal); L03.316 Cellulitis of umbilicus; E10.65 Type 1 diabetes mellitus with hyperglycemia; F41.9 Anxiety disorder, unspecified; B95.62 Methicillin resistant Staphylococcus aureus infection as the cause of diseases classified elsewhere; E83.42 Hypomagnesemia; Y83.8 Other surgical procedures as the cause of abnormal reaction of the patient, or of later complication, without mention of misadventure at the time of the procedure; Z89.012 Acquired absence of left thumb; Z98.891 History of uterine scar from previous surgery; Y92.89 Other specified places as the place of occurrence of the external cause; Z90.721 Acquired absence of ovaries, unilateral; Z90.49 Acquired absence of other specified parts of digestive tract; Z79.4 Long term (current) use of insulin; Z79.899 Other long term (current) drug therapy; Z88.0 Allergy status to penicillin; Z88.8 Allergy status to other drugs, medicaments and biological substances; Z80.8 Family history of malignant neoplasm of other organs or systems

== ENCOUNTER 2018-04-15 20:35 | Inpatient (IN) | payer OTHER ==
[~2018-04-15] VITALS: Ht 170.2 cm; Wt 99.3 kg
[~2018-04-15 20:35] MED LIST changes: +LIDOPATCH1 EACH TOP; +PERCOCET 10-321 EACH PO; +SEROQUEL200 MG PO; +SSD25 GM TOP
[2018-04-15 20:41] VITALS: BP 159/95
[2018-04-15] MEDS ORDERED: TOUJEO SOL300 UNIT/1 SUBQ (20:57)
[2018-04-15 21:23] LABS: URINE BILIRUBIN NEGATIVE (Negative); URINE BLOOD 1+ (Negative); URINE CLARITY CLEAR; URINE COLOR YELLOW; URINE GLUCOSE-RANDOM 3+ (Negative); URINE KETONES NEGATIVE (Negative); URINE LEUKOCYTES-REFLEX NEGATIVE (Negative); URINE NITRITE-REFLEX NEGATIVE (Negative); URINE PROTEIN NEGATIVE (Negative); URINE UROBILINOGEN 0.2 E.U./dl (0.2-1.0)
[2018-04-15 21:34] LABS: BACTERIA-REFLEX None Seen /HPF (None Seen); MUCUS None Seen strn/LPF (None Seen); SQUAMOUS 0-3 Few /LPF (0-3); URINE RBC 3-10 Few /HPF (0-2); URINE WBC-REFLEX 0-5 Rare /HPF (0-5)
[2018-04-15 21:35] LABS: CASTS None Seen /LPF (None Seen); CRYSTALS None Seen /LPF (None Seen)
[2018-04-15 21:58] LABS: ABSOLUTE MONOCYTES 0.2 thou/uL (0.0-1.2); ABSOLUTE NEUTROPHILS 1.8 thou/uL (1.6-8.1); BASOPHILS 0.9 %; EOSINOPHILS 1.3 %; HEMATOCRIT 32.8 % (37.0-47.0); HEMOGLOBIN 10.2 gm/dL (12.0-15.0); LYMPHOCYTES 33.2 %; MCH 24.9 pg (26.0-34.0); MCHC 31.2 g/dL (28.0-37.0); MCV 79.6 fL (80.0-100.0); MONOCYTES 7.2 %; MPV 8.2 fl. (7.2-11.1); NUCLEATED RBCS 0 /100WBC; PLATELET COUNT* 191 thou/uL (150-400); POLYS 57.4 %; RBC 4.12 mil/uL (4.20-5.00); RDW-CV 20.5 % (10.5-14.5); WBC 3.1 thou/uL (4.0-11.0)
[2018-04-15 22:06] LABS: ANION GAP 11 mmol/L (7-16); BUN 5 mg/dL (7-18); CALCIUM 8.6 mg/dL (8.5-10.1); CHLORIDE 96 mmol/L (98-107); CO2 26 mmol/L (21-32); CREATININE 0.7 mg/dL (0.6-1.3); GLUCOSE 444 mg/dL (70-99); SODIUM 133 mmol/L (136-145)
[2018-04-15 22:11] LABS: ALKALINE PHOSPHATASE 426 U/L (46-116); LIPASE 98 U/L (73-393); MAGNESIUM 1.4 mg/dL (1.8-2.4); SGOT 36 U/L (15-37); SGPT 40 U/L (30-65); TOTAL BILIRUBIN 0.3 mg/dL (<0.1-1.0); TOTAL PROTEIN 7.1 g/dL (6.4-8.2)
[2018-04-16 01:00] VITALS: BP 170/90
[2018-04-16 01:12] LABS: INFLUENZA A ANTIGEN None Detected (None Detect); INFLUENZA B ANTIGEN None Detected (None Detect)
[2018-04-16 02:51] VITALS: BP 141/91
[2018-04-16 04:11] LABS: ABSOLUTE EOSINOPHILS 0.1 thou/uL (0.0-0.7); ABSOLUTE LYMPHOCYTES 1.2 thou/uL (0.8-5.3); ABSOLUTE MONOCYTES 0.2 thou/uL (0.0-1.2); BASOPHILS 0.6 %; EOSINOPHILS 2.2 %; HEMOGLOBIN 10.5 gm/dL (12.0-15.0); LYMPHOCYTES 34.1 %; MCH 25.2 pg (26.0-34.0); MCHC 31.9 g/dL (28.0-37.0); MCV 78.7 fL (80.0-100.0); MONOCYTES 5.9 %; MPV 8.2 fl. (7.2-11.1); NUCLEATED RBCS 0 /100WBC; PLATELET COUNT* 211 thou/uL (150-400); POLYS 57.2 %; RBC 4.19 mil/uL (4.20-5.00); RDW-CV 20.3 % (10.5-14.5); WBC 3.5 thou/uL (4.0-11.0)
[2018-04-16 04:13] LABS: CALCIUM 8.5 mg/dL (8.5-10.1); CREATININE 0.6 mg/dL (0.6-1.3); POTASSIUM 3.3 mmol/L (3.5-5.1)
--- NOTE | 2018-04-16 05:25 | NUR ---
PT ADMITTED WITH HYPERGLYCEMIA, LACTIC ACIDOSIS, AND ABDOMINAL PAIN. PT CURRENTLY REPORTS PAIN 3/10 IN RLQ OF ABDOMEN, REPORTS MORPHINE HELPS. PT IS ON ROOM AIR WITH ADEQAUTE SATS. PT IN ISOLATION FOR HX OF MRSA. FLU SWAB NEGATIVE. PT HAS RIGHT PAC WITH NS INFUSING AT 150/. PT UP STANDBY ASSIST WITH STEADY GAIT. SEE ASSESSMENT AND VITALS FOR OTHER DETAILS. CALL LIGHT WITHIN REACH, WILL CONTINUE PLAN OF CARE
[2018-04-16 08:10] VITALS: BP 117/84
[2018-04-16 11:34] LABS: AMP/METHAMP Negative (Negative); BARBITURATES Negative (Negative); BENZODIAZEPINES Negative (Negative); COCAINE Negative (Negative); METHADONE Negative (Negative); OPIATES Negative (Negative); PCP Negative (Negative); THC Negative (Negative)
[2018-04-16 15:34] VITALS: BP 142/85
--- NOTE | 2018-04-16 17:10 | NUR ---
PATIENT RESTING IN BED. PATIENT IS UP AD DARREL IN ROOM. PATIENT HAS HAD COMPLAINTS OF ABDOMINAL PAIN, TREATED ADEQUATLEY WITH MEDICATION. PATIENT HAS GOOD APPETITE. NO COMPLAINTS OF NAUSEA. PATIENT DENIES ANY NEEDS AT THIS TIME. CALL LIGHT WITHIN REACH. WILL CONTINUE TO MONITOR.
[2018-04-17 05:21] LABS: ABSOLUTE EOSINOPHILS 0.1 thou/uL (0.0-0.7); ABSOLUTE LYMPHOCYTES 1.2 thou/uL (0.8-5.3); ABSOLUTE MONOCYTES 0.3 thou/uL (0.0-1.2); ABSOLUTE NEUTROPHILS 1.8 thou/uL (1.6-8.1); BASOPHILS 0.6 %; EOSINOPHILS 2.6 %; HEMATOCRIT 32.8 % (37.0-47.0); HEMOGLOBIN 10.3 gm/dL (12.0-15.0); LYMPHOCYTES 34.5 %; MCHC 31.6 g/dL (28.0-37.0); MCV 79.1 fL (80.0-100.0); MONOCYTES 7.7 %; MPV 8.3 fl. (7.2-11.1); NUCLEATED RBCS 0 /100WBC; PLATELET COUNT* 218 thou/uL (150-400); POLYS 54.6 %; RBC 4.14 mil/uL (4.20-5.00); RDW-CV 21.2 % (10.5-14.5); WBC 3.3 thou/uL (4.0-11.0)
[2018-04-17 05:35] LABS: CALCIUM 8.7 mg/dL (8.5-10.1); CREATININE 0.6 mg/dL (0.6-1.3); POTASSIUM 3.9 mmol/L (3.5-5.1)
--- NOTE | 2018-04-17 06:56 | NUR ---
PATIENT SLEPT PART OF THE NIGHT. IV FLUIDS CONTINUE TO INFUSE AT 100 ML/HR. PATIENT WAS GIVEN PAIN MEDICINE THREE TIMES THIS SHIFT AND NAUSEA MEDICINE ONCE. WILL CONTINUE TO MONITOR.
[2018-04-17 09:00] VITALS: BP 115/72
--- NOTE | 2018-04-17 10:54 | NUR ---
SW met with pt to complete initial assessment, introduce self, and SW role. Pt alert, oriented. Pt lives at home with family and is fairly independent. Pt did not express any needs at this time. SW inquired about insurance and rx assistance and pt did not respond. SW to continue to follow to assist with safe dc planning.
[2018-04-17] MEDS ORDERED: CEFUROXIME250 MG PO (12:35)
[2018-04-17 13:32] VITALS: BP 115/72
--- NOTE | 2018-04-17 20:18 | NUR ---
PT DISCHARGED HOME WITH BELONGINGS ACCOMPANIED BY . AOX4. HAS HOSPITAL PAPERWORK AND NO FURTHER QUESTIONS AT THIS TIME. TO WAITING TAXI PER WHEELCHAIR ESCORTED BY NURSING STAFF.
== END 2018-04-17 20:20 | disposition home or self-care (01) | DRG 637 ==
LOC: M.ERS 20:35 → M.TBA-ER 23:47 → M.3W 23:47
PROVIDERS: Emergency Medicine; Internal Medicine; ADMIT Internal Medicine
DX: E10.65 Type 1 diabetes mellitus with hyperglycemia (principal); K29.71 Gastritis, unspecified, with bleeding; E87.0 Hyperosmolality and hypernatremia; N30.90 Cystitis, unspecified without hematuria; F41.9 Anxiety disorder, unspecified; G47.00 Insomnia, unspecified; G89.29 Other chronic pain; E86.0 Dehydration; Z86.14 Personal history of Methicillin resistant Staphylococcus aureus infection; Z90.49 Acquired absence of other specified parts of digestive tract; Z88.6 Allergy status to analgesic agent; Z88.0 Allergy status to penicillin; Z90.721 Acquired absence of ovaries, unilateral; Z88.8 Allergy status to other drugs, medicaments and biological substances; Z79.899 Other long term (current) drug therapy; Z91.19 Patient's noncompliance with other medical treatment and regimen

== ENCOUNTER 2020-08-27 17:53 | Inpatient (IN) | payer OTHER, MEDICAID ==
[~2020-08-27] VITALS: Ht 170.2 cm; Wt 84.0 kg
--- NOTE | ~2020-08-27 | CON ---
[address] [address] CONSULTATION Name: TUAN VILLARREAL Room: [address] IN M.R.#: [id number] Admission: 08/27/20 Attend Phys: Jerry Carr MD Discharge: Date of : 86 Report #: [id number] THIS REPORT FOR: cc: Harsha Evans MD, Elliott L. MD Hanon, Daniel R. DPM ~ DATE OF SERVICE: 08/31/2020 CHIEF COMPLAINT: Postoperative day #2 for incision and drainage, right foot deep tissue infection. She is on linezolid 600 mg b.i.d. with good tolerance. Surgical cultures grew Staphylococcus aureus and Staph epidermidis. Her IJ catheter grew methicillin-resistant Staph epidermidis. She has been afebrile this morning, relates decreased right foot pain. Her appetite is improved. PHYSICAL EXAMINATION: There is decreased erythema to the right foot, which is fairly low-grade at this point. The plantar foot wound has red granulation with some pale slough and no visible bone or joint. The dorsal foot incision has red granulation also without visible bone or joint. There is no fluctuance or crepitation to the foot. She has palpable right dorsalis pedis and posterior tibial pulses. Right leg edema is significantly decreased. She has decreased pain to palpation of the foot. IMPRESSION: Status post incision and drainage of right foot deep tissue infection, poorly controlled type 1 diabetes mellitus. PLAN: The wound was flushed, dried and packed with Aquacel Ag to the dorsal and plantar aspects. Foot covered with ABDs, Kerlix and Nolberto bandage. The patient to remain nonweightbearing to the extremity. I wrote her an order for knee walker, and I will follow up with her next week at [facility]. I recommend home health care twice a week for dressing changes. By: 1443 2037Cameron Bishop DPM /nt
--- NOTE | ~2020-08-27 | CON ---
[address] [address] CONSULTATION Name: TUAN VILLARREAL Room: [address] IN M.R.#: [id number] Admission: 08/27/20 Attend Phys: Jerry Carr MD Discharge: Date of : 86 Report #: [id number] THIS REPORT FOR: cc: Harsha Evans MD, Elliott L. MD Hanon, Daniel R. DPM ~ DATE OF SERVICE: 08/30/2020 CHIEF COMPLAINT: Postoperative day #1 for incision and drainage, right foot infection. Surgical cultures growing Staphylococcus aureus and Staph epidermidis. She is on parenteral vancomycin and cefepime. She ran fever last night, but has been afebrile this morning. She relates decreased pain to the extremity. PHYSICAL EXAMINATION: There is decreased erythema to the right foot with no fluctuance or crepitation. No signs of acute vascular embarrassment to the extremity. She has palpable dorsalis pedis and posterior tibial pulses to the right foot, red granulation to both the dorsal and plantar surgical wounds with no visible bone, joint or tendon. Negative Homans' or Mckenzie sign to either extremity. No popliteal adenopathy or calf tenderness to the right lower extremity. IMPRESSION: Deep tissue infection of right foot, poorly controlled type 1 diabetes mellitus. PLAN: The surgical wounds were cleansed, dried and packed with Aquacel Ag and covered with ABDs, Kerlix and Nolberto bandage. The patient to remain strictly nonweightbearing to the extremity. I recommend she obtain a knee walker for outpatient use. I will follow up with her at [facility] next week. By: 1446 2047Cameron Bishop DPM /lb
--- NOTE | ~2020-08-27 | CON ---
[address] [address] CONSULTATION Name: TUAN VILLARREAL Room: [address] IN .R.#: [id number] Admission: 08/27/20 Attend Phys: Jerry Carr MD Discharge: Date of : 86 Report #: [id number] THIS REPORT FOR: cc: Harsha Evans MD, Elliott L. MD ~ Cameron Bishop DPM DATE OF SERVICE: 08/28/2020 ADMISSION DIAGNOSES: Hyperglycemia, right foot cellulitis. HISTORY OF PRESENT ILLNESS: The patient is a 29-year-old female admitted through the Emergency Department for hyperglycemia and worsening her hyperglycemia, sepsis, right forefoot infection of roughly 6 weeks' duration. She states she was wearing the Aircast boot for treating her stress fracture and developed a blister which further developed into ulceration. Her blood glucose was 459 upon admission. She is currently on parenteral vancomycin and meropenem, blood cultures are negative x 2. Right foot wound culture is pending. X-ray of the right foot was negative for bone destruction or subcutaneous emphysema. She has severe pain to the right foot, which is very sensitive to light touch. She remains afebrile ____ admission, remains hypotensive. LABORATORY DATA: WBC 126, hemoglobin 8.9, hematocrit ____. PHYSICAL EXAMINATION: Temperature 98.1, pulse 99, respirations 16, blood pressure 92/38. Right foot has diabetic mal perforans ulceration to the plantar second MTP joint that measures roughly 2.2 cm in diameter. I am unable to express a couple drops of purulence. The foot is warm to the touch with erythema to the dorsal forefoot centered over the second MTP joint. The patient's foot has no pallor or cyanosis. She has palpable dorsalis pedis and posterior tibial pulse to the extremity. She has immediate digital capillary refill. No popliteal adenopathy or calf pain to the right extremity. IMPRESSION: Diabetic foot ulceration, right foot. PLAN: I will perform incision and drainage tomorrow since she ate breakfast this morning and would need to be n.p.o. for at least 6 hours. In the interim, continue parenteral antibiotics. In the interim, the patient to remain nonweightbearing. I did cleanse the wound and apply ABD [place] [address] CONSULTATION Name: TUAN VILLARREAL Room: [address] IN [facility]#: [id number] Admission: 08/27/20 Attend Phys: Jerry Carr MD Discharge: Date of : 86 Report #: [id number] will get her scheduled for surgery tomorrow. We will consider MRI after surgery to evaluate for osteomyelitis. By: 0650 0843Daashlee Bishop DPM /lb
--- NOTE | ~2020-08-27 | OP ---
[address] [address] OPERATIVE REPORT Name: TUAN VILLARREAL Room: [address] IN M.R.#: [id number] Admission: 08/27/20 Attend Phys: Jerry Carr MD Discharge: Date of : 86 Report #: [id number] THIS REPORT FOR: cc: Harsha Evans MD, Elliott L. MD ~ Cameron Bishop DPM DATE OF SERVICE: 08/29/2020 SURGEON: Cameron Bishop DPM. ASSISTANTS: None. PREOPERATIVE DIAGNOSIS: Diabetic foot ulceration with deep tissue infection, right foot. ANESTHESIA: MAC. INJECTABLES: 30 mL of 0.5% Marcaine plain preoperatively. HEMOSTASIS: Right ankle pneumatic tourniquet at 250 mmHg. CULTURES: Soft tissue, right foot, aerobic/anaerobic. ESTIMATED BLOOD LOSS: Roughly 3 mL. SPECIMENS: None. COMPLICATIONS: None. DESCRIPTION OF PROCEDURE: The patient was brought to the OR and kept on her hospital bed with induction of MAC anesthesia. A well-padded right ankle tourniquet was placed and a local anesthetic block was given with 0.5% Marcaine plain. The right extremity was prepped and draped aseptically with exsanguination and inflation of the tourniquet. A #10 surgical scalpel was used to create 2 semielliptical converging incisions around the right plantar foot ulceration. The ulcer was excised and sent for soft tissue culture. The wound bed was the deep fascial layer, which had no signs of abscess or communication with the dorsal foot or second or third MTP joints. I cauterized the base of the wound and flushed it with sterile saline. I then made an incision over the right dorsal second intermetatarsal space and dissected down to the level of the second MTP joint. I performed a capsulotomy over the dorsal lateral second MTP, and no purulence was expressed. I then probed from the first intermetatarsal space down into the plantar surgical wound to create a communication and the dorsal wound was flushed with sterile saline. I then packed both the dorsal and plantar aspects of the wound with Aquacel Ag and covered with 4 x 4s, [place] [address] OPERATIVE REPORT Name: TUAN VILLARREAL Room: [address]#: [id number] Admission: 08/27/20 Attend Phys: Jerry Carr MD Discharge: Date of : 86 Report #: [id number] Rafal valles. The tourniquet was deflated and the patient left the OR with no pain or complications noted. By: 0420 0441Drojas Bishop DPM /lb
[~2020-08-27 17:53] MED LIST changes: +CEFUROXIME250 MG PO; +TOUJEO SOL300 UNIT/1 SUBQ
[2020-08-27 18:11] VITALS: BP 143/86
[2020-08-27 19:03] LABS: ABSOLUTE EOSINOPHILS 0.1 thou/uL (0.0-0.7); ABSOLUTE LYMPHOCYTES 0.9 thou/uL (0.8-5.3); ABSOLUTE MONOCYTES 0.3 thou/uL (0.0-1.2); ABSOLUTE NEUTROPHILS 4.2 thou/uL (1.6-8.1); BASOPHILS 0.4 %; EOSINOPHILS 1.1 %; HEMATOCRIT 33.2 % (37.0-47.0); HEMOGLOBIN 10.8 gm/dL (12.0-15.0); LYMPHOCYTES 16.9 %; MCH 25.1 pg (26.0-34.0); MCHC 32.6 g/dL (28.0-37.0); MCV 77.1 fL (80.0-100.0); MONOCYTES 4.8 %; MPV 8.4 fl. (7.2-11.1); NUCLEATED RBCS 0 /100WBC; PLATELET COUNT* 194 thou/uL (150-400); POLYS 76.8 %; RDW-CV 16.2 % (10.5-14.5); WBC 5.5 thou/uL (4.0-11.0)
[2020-08-27 19:21] LABS: ALBUMIN 3.1 g/dL (3.4-5.0); CALCIUM 9.4 mg/dL (8.5-10.1); CREATININE 1.2 mg/dL (0.6-1.3); POTASSIUM 4.7 mmol/L (3.5-5.1); TOTAL BILIRUBIN 0.4 mg/dL (<0.1-1.0); TOTAL PROTEIN 8.6 g/dL (6.4-8.2)
[2020-08-27 20:09] LABS: ESR (SEDRATE) 68 mm/hr (0-20)
[2020-08-27 21:59] LABS: URINE BILIRUBIN NEGATIVE (Negative); URINE BLOOD 3+ (Negative); URINE CLARITY CLEAR; URINE COLOR STRAW; URINE GLUCOSE-RANDOM 3+ (Negative); URINE KETONES NEGATIVE (Negative); URINE LEUKOCYTES-REFLEX NEGATIVE (Negative); URINE NITRITE-REFLEX NEGATIVE (Negative); URINE PROTEIN NEGATIVE (Negative); URINE UROBILINOGEN 0.2 E.U./dl (0.2-1.0)
[2020-08-27 22:14] LABS: AMP/METHAMP Negative (Negative); BARBITURATES Negative (Negative); BENZODIAZEPINES Negative (Negative); COCAINE Negative (Negative); METHADONE Negative (Negative); OPIATES POSITIVE (Negative); PCP Negative (Negative); THC POSITIVE (Negative)
[2020-08-27 22:16] LABS: APTT 26.1 Seconds (25.0-31.3); PROTIME 10.4 Seconds (9.20-11.50)
[2020-08-27 22:22] LABS: CASTS None Seen /LPF (None Seen); SQUAMOUS >10 Many /LPF (0-3)
[2020-08-27 22:23] LABS: BACTERIA-REFLEX 1-9 Few /HPF (None Seen); CRYSTALS None Seen /LPF (None Seen); URINE RBC >20 Many /HPF (0-2); URINE WBC-REFLEX None Seen /HPF (0-5)
[2020-08-27 23:28] VITALS: BP 106/59
[2020-08-27 23:30] VITALS: BP 104/59
[2020-08-28] VITALS (35 sets, daily range): BP systolic 74–130; BP diastolic 32–76
[2020-08-28 05:37] LABS: CALCIUM 7.8 mg/dL (8.5-10.1); CREATININE 0.7 mg/dL (0.6-1.3); MAGNESIUM 1.8 mg/dL (1.8-2.4)
[2020-08-28 05:39] LABS: POTASSIUM 3.7 mmol/L (3.5-5.1)
[2020-08-28 05:55] LABS: HEMATOCRIT 27.1 % (37.0-47.0); HEMOGLOBIN 8.9 gm/dL (12.0-15.0); MCH 24.6 pg (26.0-34.0); MCHC 32.7 g/dL (28.0-37.0); MCV 75.1 fL (80.0-100.0); MPV 8.5 fl. (7.2-11.1); RBC 3.61 mil/uL (4.20-5.00); RDW-CV 15.7 % (10.5-14.5); WBC 4.6 thou/uL (4.0-11.0)
[2020-08-29] VITALS (23 sets, daily range): BP systolic 82–114; BP diastolic 37–75
--- NOTE | 2020-08-29 09:40 | EKG ---
[place] [address] ELECTROCARDIOGRAM REPORT Name: PHILTUAN Lal Room: [address] IN .R.#: [id number] Admission: 08/27/20 Attend Phys: Jerry Carr, Discharge: Date of : 86 Date of Service: 08/27/201935 Report #: [id number] THIS REPORT FOR: //name// [facility] ED Test Date: 2020-08-27 Test Time: 19:36:28 Pat Name: TUAN VILLARREAL Department: Room: [facility] Gender: F Plasterer Foreman: HANH : 1990 Requested By: Stephanie Tanner Order Number: [id number] MD: Dewey Chamberlain Measurements Intervals [place] Rate: 106 P: 46 AL: 163 QRS: 255 QRSD: 86 T: 33 QT: 335 QTc: 445 Interpretive Statements Sinus tachycardia Left anterior fascicular block Low voltage, precordial leads RSR' in V1 or V2, right VCD or RVH Compared to ECG 02/10/2018 21:21:40 Low QRS voltage now present T-wave abnormality no longer present Electronically Signed On 08-29-2020 9:40:34 CDT by Dewey Chamberlain [email or web address] <ELECTRONICALLY SIGNED> By: Dewey Chamberlain MD, [facility] 08/29/20 0940 35 35 Dewey Chamberlain MD, [facility] /EPI
[2020-08-30 00:06] VITALS: BP 100/52
[2020-08-30 03:51] VITALS: BP 98/55
[2020-08-30 07:16] LABS: CALCIUM 8.6 mg/dL (8.5-10.1); CREATININE 0.9 mg/dL (0.6-1.3); MAGNESIUM 1.8 mg/dL (1.8-2.4); POTASSIUM 4.6 mmol/L (3.5-5.1)
[2020-08-30 07:57] VITALS: BP 105/62
[2020-08-30 11:30] VITALS: BP 95/57
[2020-08-30 16:00] VITALS: BP 145/93
[2020-08-30 20:00] VITALS: BP 115/66
[2020-08-31 00:04] VITALS: BP 103/49
[2020-08-31 04:14] VITALS: BP 96/52
[2020-08-31 08:00] VITALS: BP 107/65
[2020-08-31 20:29] VITALS: BP 99/64
[2020-08-31 23:40] VITALS: BP 92/58
[2020-09-01] MEDS ORDERED: LINEZOLID600 MG PO (08:31)
[2020-09-01] MEDS ORDERED: IBUPROFEN 600600 M1 PO (08:31)
[2020-09-01] MEDS ORDERED: PERCOCET 5-3251 EACH PO (08:34)
[2020-09-01 10:54] VITALS: BP 92/58
== END 2020-09-01 11:40 | disposition home or self-care (01) | DRG 264 ==
LOC: M.ERS 17:53 → M.TBA-ER 18:58 → M.ICU 18:58 → M.TBA-ER 19:32 → M.ICU 22:49 → M.2W 08-29 13:50
PROVIDERS: Emergency Medicine; Physician Assistant; ADMIT Internal Medicine; ATTEND Internal Medicine
PROC: 0JPW0WZ Removal of Totally Implantable Vascular Access Device from Lower Extremity Subcutaneous Tissue and Fascia, Open Approach (ICD-10-PCS; principal; 2020-08-27)
PROC: 0JBQ0ZZ Excision of Right Foot Subcutaneous Tissue and Fascia, Open Approach (ICD-10-PCS; 2020-08-29)
DX: T80.211A Bloodstream infection due to central venous catheter, initial encounter (principal); E10.10 Type 1 diabetes mellitus with ketoacidosis without coma; A41.02 Sepsis due to Methicillin resistant Staphylococcus aureus; L03.115 Cellulitis of right lower limb; E87.1 Hypo-osmolality and hyponatremia; M86.8X7 Other osteomyelitis, ankle and foot; E10.621 Type 1 diabetes mellitus with foot ulcer; F41.9 Anxiety disorder, unspecified; G47.00 Insomnia, unspecified; I95.2 Hypotension due to drugs; E10.69 Type 1 diabetes mellitus with other specified complication; Z20.822 Contact with and (suspected) exposure to COVID-19; Z90.49 Acquired absence of other specified parts of digestive tract; Z88.6 Allergy status to analgesic agent; Z88.0 Allergy status to penicillin; Z88.8 Allergy status to other drugs, medicaments and biological substances; Z86.14 Personal history of Methicillin resistant Staphylococcus aureus infection

== ENCOUNTER → 2020-09-07 | Outpatient (CLI) | payer OTHER, MEDICAID ==
[~2020-09-07] MED LIST changes: +IBUPROFEN 600600 M1 PO; +LINEZOLID600 MG PO; +PERCOCET 5-3251 EACH PO
[2020-09-07 15:48] LABS: ABSOLUTE EOSINOPHILS 0.1 thou/uL (0.0-0.7); ABSOLUTE LYMPHOCYTES 1.7 thou/uL (0.8-5.3); ABSOLUTE MONOCYTES 0.3 thou/uL (0.0-1.2); ABSOLUTE NEUTROPHILS 2.8 thou/uL (1.6-8.1); BASOPHILS 0.4 %; EOSINOPHILS 1.7 %; HEMATOCRIT 33.6 % (37.0-47.0); HEMOGLOBIN 10.7 gm/dL (12.0-15.0); LYMPHOCYTES 34.6 %; MCH 24.4 pg (26.0-34.0); MCHC 31.8 g/dL (28.0-37.0); MCV 76.7 fL (80.0-100.0); MONOCYTES 5.7 %; MPV 6.9 fl. (7.2-11.1); NUCLEATED RBCS 0 /100WBC; PLATELET COUNT* 313 thou/uL (150-400); POLYS 57.6 %; RBC 4.39 mil/uL (4.20-5.00); RDW-CV 16.4 % (10.5-14.5); WBC 4.9 thou/uL (4.0-11.0)
[2020-09-07 16:02] LABS: CREATININE 0.9 mg/dL (0.6-1.3); POTASSIUM 4.9 mmol/L (3.5-5.1)
[2020-09-08 04:06] LABS: GLYCOHEMOGLOBIN (HGB A1C) 15.4 % (4.8-5.6)
== END ==
LOC: M.WC 13:57
PROVIDERS: ATTEND Podiatrist Foot & Ankle Surgery
DX: L02.611 Cutaneous abscess of right foot (principal); E11.621 Type 2 diabetes mellitus with foot ulcer; L97.512 Non-pressure chronic ulcer of other part of right foot with fat layer exposed; L03.115 Cellulitis of right lower limb; E11.39 Type 2 diabetes mellitus with other diabetic ophthalmic complication; H42 Glaucoma in diseases classified elsewhere; E11.40 Type 2 diabetes mellitus with diabetic neuropathy, unspecified; F41.9 Anxiety disorder, unspecified; Z86.14 Personal history of Methicillin resistant Staphylococcus aureus infection; Z90.49 Acquired absence of other specified parts of digestive tract

== ENCOUNTER → 2020-09-14 | Outpatient (CLI) | payer OTHER, MEDICAID | LOC: M.WC 12:40 | PROVIDERS: ATTEND Podiatrist Foot & Ankle Surgery | DX: L02.611 Cutaneous abscess of right foot (principal); E11.621 Type 2 diabetes mellitus with foot ulcer; L97.512 Non-pressure chronic ulcer of other part of right foot with fat layer exposed; L03.115 Cellulitis of right lower limb; E11.39 Type 2 diabetes mellitus with other diabetic ophthalmic complication; H42 Glaucoma in diseases classified elsewhere; E11.42 Type 2 diabetes mellitus with diabetic polyneuropathy; F41.9 Anxiety disorder, unspecified; Z86.14 Personal history of Methicillin resistant Staphylococcus aureus infection; Z90.49 Acquired absence of other specified parts of digestive tract ==

== ENCOUNTER 2021-01-13 22:33 | Emergency (ER) | payer MEDICAID ==
[~2021-01-13] VITALS: Ht 170.2 cm; Wt 77.1 kg
[2021-01-14] MEDS ORDERED: KEFLEX250 MG PO (02:25)
[2021-01-14] MEDS ORDERED: TESSALON PERLE100 M1 PO (02:25)
[2021-01-14] MEDS ORDERED: PERCOCET 7.5-31 EAC1 PO (02:25)
[2021-01-14 02:40] VITALS: BP 142/81
== END 2021-01-14 02:40 | disposition home or self-care (01) ==
LOC: M.ERS 22:33
DX: H66.91 Otitis media, unspecified, right ear (principal); E10.9 Type 1 diabetes mellitus without complications; Z98.890 Other specified postprocedural states; Z90.49 Acquired absence of other specified parts of digestive tract; Z90.89 Acquired absence of other organs; Z86.2 Personal history of diseases of the blood and blood-forming organs and certain disorders involving the immune mechanism; Z88.0 Allergy status to penicillin; Z88.1 Allergy status to other antibiotic agents

== ENCOUNTER 2021-01-25 15:53 | Emergency (ER) | payer MEDICAID ==
[~2021-01-25] VITALS: Ht 170.2 cm; Wt 72.6 kg
[~2021-01-25 15:53] MED LIST changes: +KEFLEX250 MG PO; +PERCOCET 7.5-31 EAC1 PO; +TESSALON PERLE100 M1 PO
[2021-01-25] MEDS ORDERED: IBUPROFEN 800800 M1 PO (18:21)
[2021-01-25] MEDS ORDERED: CLEOCIN HCL300 MG PO (18:21)
[2021-01-25] MEDS ORDERED: PERCOCET 5-3251 EACH PO (18:40)
[2021-01-25] MEDS ORDERED: MEDROLDOSEPACK PO (18:47)
[2021-01-25 19:00] VITALS: BP 146/75
== END 2021-01-25 19:01 | disposition home or self-care (01) ==
LOC: M.ERS 15:53
DX: J01.90 Acute sinusitis, unspecified (principal); Z20.822 Contact with and (suspected) exposure to COVID-19; H66.91 Otitis media, unspecified, right ear; E10.9 Type 1 diabetes mellitus without complications; F41.9 Anxiety disorder, unspecified; Z98.890 Other specified postprocedural states; Z90.49 Acquired absence of other specified parts of digestive tract; Z87.42 Personal history of other diseases of the female genital tract; Z86.14 Personal history of Methicillin resistant Staphylococcus aureus infection; Z79.899 Other long term (current) drug therapy; Z79.4 Long term (current) use of insulin; Z88.1 Allergy status to other antibiotic agents; Z88.6 Allergy status to analgesic agent; Z88.0 Allergy status to penicillin

== ENCOUNTER 2021-05-06 22:08 | Emergency (ER) | payer MEDICAID ==
[~2021-05-06] VITALS: Ht 170.2 cm; Wt 77.1 kg
[~2021-05-06 22:08] MED LIST changes: +CLEOCIN HCL300 MG PO; +IBUPROFEN 800800 M1 PO; +MEDROLDOSEPACK PO
[2021-05-06] MEDS ORDERED: PERCOCET 7.5-31 EAC1 PO (23:45)
[2021-05-06] MEDS ORDERED: BACTRIM DS TAB1 EACH PO (23:45)
[2021-05-06 23:57] VITALS: BP 136/63
== END 2021-05-06 23:57 | disposition home or self-care (01) ==
LOC: M.ERS 22:08
DX: L03.011 Cellulitis of right finger (principal); E10.9 Type 1 diabetes mellitus without complications; F41.9 Anxiety disorder, unspecified; Z98.890 Other specified postprocedural states; Z90.49 Acquired absence of other specified parts of digestive tract; Z79.4 Long term (current) use of insulin; Z79.899 Other long term (current) drug therapy; Z88.0 Allergy status to penicillin; Z88.5 Allergy status to narcotic agent

== ENCOUNTER 2021-05-11 14:40 | Observation (INO) | payer MEDICAID ==
[~2021-05-11] VITALS: Ht 170.2 cm; Wt 77.1 kg
[2021-05-11 14:46] VITALS: BP 142/74
[2021-05-11 19:50] LABS: BE -3.2 mmol/L (-2 to +3); PO2 VENOUS 158.7 mmHg (35.0-45.0)
[2021-05-11 19:54] LABS: ABSOLUTE MONOCYTES 0.3 thou/uL (0.0-1.2); MONOCYTES 4.8 %; MPV 7.9 fl. (7.2-11.1); NUCLEATED RBCS 0 /100WBC; RDW-CV 16.1 % (10.5-14.5)
[2021-05-11 19:56] LABS: ABSOLUTE EOSINOPHILS 0.2 thou/uL (0.0-0.7); ABSOLUTE LYMPHOCYTES 1.8 thou/uL (0.8-5.3); ABSOLUTE NEUTROPHILS 3.2 thou/uL (1.6-8.1); BASOPHILS 0.3 %; EOSINOPHILS 3.2 %; HEMATOCRIT 36.9 % (37.0-47.0); LYMPHOCYTES 33.1 %; MCHC 32.5 g/dL (28.0-37.0); PLATELET COUNT* 238 thou/uL (150-400); POLYS 58.6 %; RBC 4.45 mil/uL (4.20-5.00); WBC 5.5 thou/uL (4.0-11.0)
[2021-05-11 20:19] LABS: ANION GAP 13 mmol/L (7-16); BUN 20 mg/dL (7-18); CALCIUM 9.1 mg/dL (8.5-10.1); CHLORIDE 92 mmol/L (98-107); CO2 19 mmol/L (21-32); POTASSIUM 4.7 mmol/L (3.5-5.1); SODIUM 124 mmol/L (136-145)
[2021-05-11 20:21] LABS: ALBUMIN 3.4 g/dL (3.4-5.0); ALKALINE PHOSPHATASE 232 U/L (46-116); SGOT 26 U/L (15-37); SGPT 30 U/L (30-65); TOTAL BILIRUBIN 0.2 mg/dL (<0.1-1.0)
[2021-05-11 20:22] LABS: GLUCOSE 635 mg/dL (70-99)
[2021-05-11 23:30] LABS: URINE BILIRUBIN NEGATIVE (Negative); URINE BLOOD 2+ (Negative); URINE COLOR STRAW; URINE GLUCOSE-RANDOM 3+ (Negative); URINE KETONES NEGATIVE (Negative); URINE LEUKOCYTES NEGATIVE (Negative); URINE NITRITE NEGATIVE (Negative); URINE PROTEIN TRACE (Negative); URINE UROBILINOGEN 0.2 E.U./dl (0.2-1.0)
[2021-05-11 23:33] LABS: URINE CLARITY SL CLOUDY
[2021-05-11 23:44] LABS: BACTERIA 1-9 Few /HPF (None Seen); CASTS None Seen /LPF (None Seen); CRYSTALS None Seen /LPF (None Seen); MUCUS 0-3 Light strn/LPF (None Seen); SQUAMOUS 0-3 Few /LPF (0-3); URINE WBC 0-5 Rare /HPF (0-5)
[2021-05-12] VITALS (8 sets, daily range): BP systolic 120–143; BP diastolic 78–87
--- NOTE | 2021-05-12 07:59 | NUR ---
BLOOD GLUCOSE 125. NO CHANGE IN RATE OF INSULIN DRIP INFUSION INDICATED PER PROTOCOL ORDER.
--- NOTE | 2021-05-12 09:19 | NUR ---
NOT RATE CHANGE TO INSULIN DRIP PER PROTOCOL
--- NOTE | 2021-05-12 09:41 | EKG ---
[place] [address] ELECTROCARDIOGRAM REPORT Name: PHILTUAN Lal Room: [place] [address] ADM IN [facility]#: [id number] Admission: 05/11/21 Attend Phys: Quyen Vanegas, Discharge: Date of : 86 Date of Service: 05/11/211901 Report #: [id number] THIS REPORT FOR: //name// [facility] ED Test Date: 2021-05-11 Test Time: 19:02:07 Pat Name: TUAN VILLARREAL Department: Room: [facility] Gender: F Primary Counselor: TJJermain : 1990 Requested By: Catherine Mehta Order Number: [id number] MD: Dewey Chamberlain Measurements Intervals [place] Rate: 95 P: 53 NC: 164 QRS: 253 QRSD: 88 T: 36 QT: 360 QTc: 453 Interpretive Statements Sinus rhythm Probable left atrial enlargement Left anterior fascicular block Probable RVH w/ secondary repol abnormality Compared to ECG 08/27/2020 19:36:28 Sinus tachycardia no longer present Electronically Signed On 05-12-2021 9:41:27 DATA MANAGER by Dewey Chamberlain [email or web address] <ELECTRONICALLY SIGNED> By: Dewey Chamberlain MD, FACC 05/12/2141 01 01 Dewey Chamberlain MD, [facility]ACC /EPI
[2021-05-12] MEDS ORDERED: ZOFRAN4 MG PO (17:05)
[2021-05-12] MEDS ORDERED: DOXYCYCLINE 10100 MG PO (17:06)
== END 2021-05-12 20:44 | disposition home or self-care (01) ==
LOC: M.ERS 14:40 → M.TBA-ER 21:24
PROVIDERS: Physician Assistant; ADMIT Internal Medicine; ATTEND Internal Medicine
DX: M79.644 Pain in right finger(s) (principal); M79.89 Other specified soft tissue disorders; Z20.822 Contact with and (suspected) exposure to COVID-19; E11.00 Type 2 diabetes mellitus with hyperosmolarity without nonketotic hyperglycemic-hyperosmolar coma (NKHHC); E10.9 Type 1 diabetes mellitus without complications; F41.9 Anxiety disorder, unspecified; D50.9 Iron deficiency anemia, unspecified; G47.00 Insomnia, unspecified; Z79.84 Long term (current) use of oral hypoglycemic drugs; Z79.899 Other long term (current) drug therapy

== ENCOUNTER 2021-07-24 19:51 | Emergency (ER) | payer MEDICAID ==
[~2021-07-24] VITALS: Ht 170.2 cm; Wt 81.7 kg
[~2021-07-24 19:51] MED LIST changes: +DOXYCYCLINE 10100 MG PO
[2021-07-24 20:19] VITALS: BP 151/94
== END 2021-07-24 23:01 | disposition left against medical advice (07) ==
LOC: M.ERS 19:51
DX: R42 Dizziness and giddiness (principal); N93.9 Abnormal uterine and vaginal bleeding, unspecified; E10.9 Type 1 diabetes mellitus without complications; F41.9 Anxiety disorder, unspecified; Z53.21 Procedure and treatment not carried out due to patient leaving prior to being seen by health care provider; Z88.0 Allergy status to penicillin; Z88.8 Allergy status to other drugs, medicaments and biological substances; Z88.6 Allergy status to analgesic agent; Z88.5 Allergy status to narcotic agent